=== PATIENT | male | born 1995 | race Caucasian/White ===

== ENCOUNTER 2018-03-13 18:58 | Emergency (ER) | payer MEDICAID ==
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
[2018-03-13 20:17] VITALS: BP 127/62
== END 2018-03-13 20:08 | disposition home or self-care (01) ==
LOC: CED 18:58
DX: S00.33XA Contusion of nose, initial encounter (principal); Y04.0XXA Assault by unarmed brawl or fight, initial encounter
CPT/HCPCS: 99282-ER